=== PATIENT | male | born 1945 | race Caucasian/White ===

== ENCOUNTER 2017-09-17 23:18 | Inpatient (IN) ==
[2017-09-17] MEDS ORDERED: Sodium Chloride 0.9% 1,000 ML PRIMARY IV ONE (23:28)
--- NOTE | 2017-09-17 23:30 | PDOC ---
Fall HPI - General Chief Complaint: Fall Stated Complaint: FALL X 3 TODAY Date Seen by Provider: 09/17/17 Time Seen by Provider: 23:27 Source: POSITIVE: Other (Son and grandson) Exam Limitations: POSITIVE: Clinical condition Nurse's Notes Reviewed & Considered: Yes - History of Present Illness Initial Comments: This is a well-developed, well-nourished, demented, 72-year-old male, who is fallen 3 times today. Patient is DO NOT RESUSCITATE status and was brought in by ambulance after he experienced his third fall today. He is incontinent of urine and has foul-smelling urine. Review of systems is unavailable because the patient's dementia. Son relates that he has had no fever chills or sweats, no cough, no diarrhea or nausea and vomiting. His son further relates that his falls were more weakness and collapse in a controlled, assisted, fashion and did not hit his head. Have you received a tetanus shot in the past 10 years?: Unknown Timing: REPORTS: Intermittent Duration: Unknown Severity: Moderate Context of Fall: REPORTS: Other (Source of his falling is unknown) Location of Fall: REPORTS: Home Associated Symptoms: REPORTS: Memory Impairment, Other (Dementia, patient does not remember falling.) Location of Injuries / Pain: DENIES: Right, Left, Head, Face, Tongue, Lips, Nose , Mouth, Cheeks, Eyes, Ears, Neck, Chest, Abdomen, Upper Back, Mid Back, Lower Back, Radiating to Thigh, Radiating to Leg, Shoulder, Arm, Elbow, Forearm, Wrist , Hand, Hip, Thigh, Knee, Leg, Ankle, Foot, Other - Patient Home Medications Home Medications: Home Medications Clopidogrel Bisulfate [Plavix] 75 mg ORAL QD #90 tab 12/30/11 Levothyroxine Sodium 25 mcg ORAL QD #90 tab 12/30/11 Simvastatin 20 mg ORAL QD #90 tab 12/30/11 - Patient Allergies Allergies/Adverse Reactions: Allergies 3 Allergy/AdvReac Type Severity Reaction Status Date / Time Penicillins Allergy Severe Anaphylaxis Verified 09/18/17 06:55 narcotics AdvReac FLUSHING Uncoded 09/18/17 06:55 Past Medical History - heen HEENT History: Denies History Additional HEENT History: Removed all teeth in November,, dentures at home Cardiovascular History: Hypertension, Hyperlipidemia Respiratory History: Denies History Gastrointestinal History: Denies History Additional Gastrointestinal History: inguinal hernia Genitourinary History: Incontinence Endocrine History: Hypothyroidism Musculoskeletal History: Denies History Prosthesis or Implant: No Neurological History: CVA Blood Disorders: Denies History Psychiatric History: Denies History History of Sexually Transmitted Diseases: No Cancer History: Denies History History of MDRO: No History of Other Communicable Diseases: No Alcohol Use: Heavy In the Past 12 Months, Have Used or Abuse Any Substance: None Previous Surgical History: Yes Type / Date of Surgery: APPENDECTOMY Anesthesia Reactions: No Malignant Hyperthermia: No Significant Family History: No pertinent family hx ROS - Limitations ROS Limitations: Mental Impairment (Dementia and further review of systems unavailable because of his dementia.) Fall Physical Exam - General Appearance General Appearance: POSITIVE: Cooperative, No Acute Distress - HEENT HEENT: POSITIVE: Head Inspection Nml, Eyes Inspection Nml, Ears Inspection Nml, Nose Inspection Nml, Oral/Dental Inspect. Nml, Pharynx Inspect. Nml, PERRL, EOMI - Pupil Size Pupil Size: 4 mm: Bilateral - Neck Neck: POSITIVE: Non Tender, Painless ROM, Trachea Midline, Nexus Criteria Negative - Respiratory / CVS Respiratory / CVS: POSITIVE: Chest Non Tender, No Ecchymosis, Breath Sounds Normal, No Respiratory Distress, Heart Sounds Normal, Regular Rate/Rhythm Peripheral Pulses: Radial (R): 4+ - Abdomen Abdomen: Soft: (All Quadrants), Normal Bowel Sounds: (All Quadrants), Denies Tenderness: (All Quadrants), No Splenomegaly: (All Quadrants), No Hepatomegaly: (All Quadrants), No Guarding: (All Quadrants), No Rebound: (All Quadrants), No Palpable Pulse: (All Quadrants), No Palpabale Mass: (All Quadrants), No Distention: (All Quadrants), No Rigidity: (All Quadrants) - Neuro / Psych Neuro / Psych: 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 Normal As Tested, Motor Normal, Sensation Normal, Disoriented To Place, Disoriented To Time - Skin Skin: POSITIVE: Intact, Warm, Dry - Back Back: POSITIVE: Normal Inspection, No CVA Tenderness, Non Tender, Painless ROM, No Vertebral Tenderness - Extremities Extremity Assessment: Non-Tender: (ALL), Normal ROM: (ALL), No Edema: (ALL), Normal Inspection: (ALL), No Swelling: (ALL), Pelvis Stable: (ALL) Procedures - Laceration/Wound Repair Did patient have a laceration repair: No Fall Progress - Results Reviewed by me Xrays/CTs/US Reviewed by me: Yes Discussed with Radiologist: Yes Lab Results Reviewed by Me: Yes CBC and BMP: 09/17/17 23:00 09/17/17 23:00 Lab Results:: Laboratory Results 3 09/17/17 09/17/17 09/17/17 23:00 23:00 23:00 WBC 3.99 L RBC 5.56 Hgb 16.3 Hct 46.5 MCV 83.6 MCH 29.3 MCHC 35.1 RDW Std Deviation 44.5 RDW Coeff of [place] 14.7 H Plt Count 224 MPV 9.3 Immature Gran % (Auto) 0.3 Neut % (Auto) 64.6 Lymph % (Auto) 20.8 Rogers % (Auto) 10.5 Eos % (Auto) 3.5 Baso % (Auto) 0.3 Immature Gran # (Auto) 0.01 Neut # (Auto) 2.58 Lymph # (Auto) 0.83 Rogers # (Auto) 0.42 Eos # (Auto) 0.14 Baso # (Auto) 0.01 WBC Morphology Comment Normal morphology Plt Morphology Comment Normal morphology RBC Morph Comment Normal morphology Sodium 142 Potassium 3.3 L Chloride 106 Carbon Dioxide 18 L Anion Gap 18 BUN 12 Creatinine 0.7 BUN/Creatinine Ratio 17.14 Glucose 99 Calculated Osmolality 293.0 H Calcium 8.9 Magnesium 1.9 Total Bilirubin 1.2 AST 19 L ALT 14 L Alkaline Phosphatase 90 Troponin I < 0.012 C-Reactive Protein < 0.5 Total Protein 8.0 Albumin 4.3 Globulin 3.7 Albumin/Globulin Ratio 1.10 L Ur Collection Type Urine Color Urine Clarity Urine pH Ur Specific [place] Urine Protein Urine Glucose (UA) Urine Ketones Urine Occult Blood Urine Nitrate Urine Bilirubin Urine Urobilinogen Ur Leukocyte Esterase Urine RBC Urine WBC Ur Squamous Epith Cells Ur Renal Epithelial Cell Urine Crystals Urine Bacteria Urine Casts Urine Mucus Urine Trichomonas Urine Yeast Ur Culture Indicated? 3 09/18/17 00:20 WBC RBC Hgb Hct MCV MCH MCHC RDW Std Deviation RDW Coeff of [place] Plt Count MPV Immature Gran % (Auto) Neut % (Auto) Lymph % (Auto) Rogers % (Auto) Eos % (Auto) Baso % (Auto) Immature Gran # (Auto) Neut # (Auto) Lymph # (Auto) Rogers # (Auto) Eos # (Auto) Baso # (Auto) WBC Morphology Comment Plt Morphology Comment RBC Morph Comment Sodium Potassium Chloride Carbon Dioxide Anion Gap BUN Creatinine BUN/Creatinine Ratio Glucose Calculated Osmolality Calcium Magnesium Total Bilirubin AST ALT Alkaline Phosphatase Troponin I C-Reactive Protein Total Protein Albumin Globulin Albumin/Globulin Ratio Ur Collection Type Voided specimen Urine Color Yellow Urine Clarity Clear Urine pH 5.5 Ur Specific [place] <=1.005 Urine Protein Negative Urine Glucose (UA) Negative Urine Ketones Negative Urine Occult Blood Large H Urine Nitrate Negative Urine Bilirubin Negative Urine Urobilinogen 0.2 Ur Leukocyte Esterase Negative Urine RBC 0-1 Urine WBC None Ur Squamous Epith Cells None Ur Renal Epithelial Cell None Urine Crystals None Urine Bacteria Rare Urine Casts None Urine Mucus None Urine Trichomonas None Urine Yeast None Ur Culture Indicated? Culture not set EKG Interpretation:: POSITIVE: Normal Sinus Rhythm - Patient's Progress Pain Medication Addressed: POSITIVE: Not Applicable Status: POSITIVE: Improved MDM / ED Course: Patient was evaluated, an IV started, blood drawn and sent to the lab for studies, chest x-ray was obtained. Findings: EKG shows a sinus rhythm with no acute ST changes appreciated. CMP shows a potassium of 3.3 a slight elevation of his LFTs. Urinalysis is negative. CBC shows white count 3.99. Assessment: Falls and weakness Plan: Admission. - Consult Consult (If Yes, Name of Consulting MD & Time Called): Yes (dr. montaño) Consulting MD will see pt:: POSITIVE: [facility] [place] Ad[place] Counseled: POSITIVE: Patient, Family, RE: Lab Results, RE: Radiology Results, RE : DX, RE: Need for F/U Patient Care Time - Estimated PCT Patient Care Time (In Minutes): 45 Vital Signs - Recent Vital Signs Vital Signs: Vital Signs (Last 8 hours) Temp Pulse Pulse Pulse Resp BP BP 09/18/17 07:42 98.6 F 64 18 159/90 09/18/17 07:00 74 09/18/17 04:39 96.9 F 68 24 170/108 09/18/17 02:19 80 188/103 09/18/17 01:34 86 16 09/18/17 01:00 96.6 F L 86 16 188/106 Pulse Ox 09/18/17 07:42 94 09/18/17 07:00 09/18/17 04:39 93 09/18/17 02:19 09/18/17 01:34 09/18/17 01:00 95 - VS Reviewed Vital Signs Reviewed: Yes Discharge Clinical Impression: Multiple falls Discharge Disposition: Admit to Inpatient Condition: Stable Date Decision to Admit to Inpatient: 09/18/17 Time Decision to Admit to Inpatient: 00:16
[2017-09-17 23:33] LABS: BASOPHILS # (AUTO) 0.01 10*3/UL; BASOPHILS % (AUTO) 0.3 % (0-1); EOSINOPHILS # (AUTO) 0.14 10*3/UL; EOSINOPHILS % (AUTO) 3.5 % (0-8); Hematocrit [HCT] 46.5 % (42.0-52.0); Hemoglobin [HGB] 16.3 g/dL (14.0-18.0); LYMPHOCYTES # (AUTO) 0.83 10*3/uL; MEAN CORPUSCULAR HEMOGLOBIN 29.3 PG (27-31); MEAN CORPUSCULAR HGB CONC 35.1 g/dL (33-37); MEAN CORPUSCULAR VOLUME 83.6 FL (80-90); MEAN PLATELET VOLUME 9.3 FL (7.4-12.2); MONOCYTES # (AUTO) 0.42 10*3/UL (0.3-0.8); MONOCYTES % (AUTO) 10.5 % (5-15); NEUTROPHILS # (AUTO) 2.58 10*3/UL; NEUTROPHILS % (AUTO) 64.6 % (50-80); PLATELET MORPHOLOGY COMMENT NORMAL MORPHOLOGY (NORM); RBC MORPHOLOGY COMMENT NORMAL MORPHOLOGY (NORM); RED BLOOD COUNT 5.56 10^6/uL (4.70-6.10); WBC MORPHOLOGY COMMENT NORMAL MORPHOLOGY (NORM)
[2017-09-17 23:42] LABS: BLOOD UREA NITROGEN 12 mg/dL (7-22); BUN/CREATININE RATIO 17.14 (6-20); SERUM ALBUMIN 4.3 g/dL (3.5-4.8)
--- NOTE | 2017-09-17 23:42 | EKG ---
[address] [address] Measurements Intervals [place] Rate: 82 P: -49 AK: 178 QRS: 48 QRSD: 96 T: 68 QT: 392 QTc: 430 Interpretive Statements SINUS RHYTHM MINIMAL ST DEPRESSION [0.025+ mV ST DEPRESSION] Compared to ECG 12/29/2015 09:32:34 ST (T wave) deviation now present Sinus bradycardia no longer present Sinus arrhythmia no longer present Electronically Signed On 09-18-17 09:18:00 MDT by Ken Mckee MD [email or web address]
[2017-09-18 00:26] LABS: BILIRUBIN,URINE NEGATIVE (NEG); CLARITY,URINE CLEAR (CLEAR); COLOR,URINE YELLOW (Y); GLUCOSE, URINE (UA) NEGATIVE (NEG); OCCULT BLOOD,URINE LARGE (NEG); PH,URINE 5.5 (5.0-8.5); PROTEIN,URINE NEGATIVE (NEG); UROBILINOGEN,URINE 0.2 EU/dL (0.2)
[2017-09-18 00:33] LABS: BACTERIA,URINE RARE; RBC,URINE 0-1 /hpf; URINE SAMPLE TYPE VOIDED SPECIMEN
[2017-09-18] MEDS ORDERED: DOCUSATE 100 MG CAPSULE PO PRN (00:48)
[2017-09-18] MEDS ORDERED: ONDANSETRON 4 MG/2 ML VIAL IVP PRN (00:48)
[2017-09-18] MEDS ORDERED: ACETAMINOPHEN 325 MG TABLET PO PRN (00:48)
[2017-09-18] MEDS ORDERED: LIDOCAINE W/ SODIUM BICARB 0.5 ML SYR SUBD PRN (00:48)
[2017-09-18] MEDS ORDERED: CALCIUM CARBONATE 500 MG (TUMS) CHEWABLE TABLET PO PRN (00:48)
[2017-09-18] MEDS: METOPROLOL TARTRATE 5 MG/5 ML VIAL IVP PRN ×2 (02:19→18:02)
[2017-09-18] MEDS: D5-1/2NS + 20mEq KCL 1,000 ML PRIMARY IV SCH ×3 (02:22→20:50)
--- NOTE | 2017-09-18 02:23 | DI ---
EXAM: XR Chest, 1 View CLINICAL HISTORY: falls Physician Notes: Tech Comments: TECHNIQUE: Frontal view of the chest. COMPARISON: 01/17/2013. FINDINGS: Lungs: No focal airspace disease. Diminished lung volumes. The pulmonary vasculature is within normal limits. Pleural space: Unremarkable. No pneumothorax. Heart: Cardiac silhouette is partially obscured. No evidence of enlargement. Mediastinum: The trachea is midline. Bones/joints: Unremarkable. Vasculature: Atherosclerotic calcification with mild unfolding of the thoracic aorta. IMPRESSION: Diminished lung volumes without evidence for acute traumatic injury or focal airspace disease.
--- NOTE | 2017-09-18 02:47 | DI ---
EXAM: CT Head Without Intravenous Contrast CLINICAL HISTORY: ITS.REASON falls, plavix and AMS Physician Notes: Tech Comments: TECHNIQUE: Axial computed tomography images of the head/brain without intravenous contrast. COMPARISON: 12/29/2015 FINDINGS: Brain: Diffuse cerebral atrophy noted. Periventricular and subcortical deep white matter hypodense changes noted. Hypodense area involving the left basal ganglia extending to the lateral aspect of the left frontal horn. No hemorrhage. Ventricles: Unremarkable. No ventriculomegaly. Bones/joints: Unremarkable. No acute fracture. Soft tissues: Unremarkable. Sinuses: Unremarkable as visualized. No acute sinusitis. Mastoid air cells: Unremarkable as visualized. No mastoid effusion. IMPRESSION: No acute intracranial process with underlying cerebral atrophy and deep white matter presumed microvascular changes, similar to 12/29/2015. Stable chronic lacunar infarct involving the left basal ganglia.
[2017-09-18] MEDS: LEVOTHYROXINE 25 MCG TABLET PO SCH (04:49)
[2017-09-18] MEDS: ENOXAPARIN SODIUM 40 MG/0.4 ML SYRINGE SUBCUT SCH (08:56)
[2017-09-18] MEDS: Simvastatin Tab 20 MG TAB PO SCH (08:56)
[2017-09-18] MEDS: CLOPIDOGREL 75 MG TABLET PO SCH (08:56)
[2017-09-18] MEDS: TAMSULOSIN 0.4 MG CAPSULE PO SCH (16:56)
--- NOTE | 2017-09-18 18:00 | PDOC ---
HPI - History of Present Illness History of Present Illness: Is a very nice 72-year-old gentleman with a history of severe dementia comes in to the ER with multiple falls and increased dementia was found to have the low potassium levels and dehydration was admitted for electrolyte replacement denies any pain history unable to obtain secondary to dementia history obtained from old notes Past Medical History Medical History: 1. Multiple strokes. 2. 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 3. Hypothyroidism. 4. Hyperlipidemia Surgical History: 1. Had all his teeth pulled out 5-6 weeks ago Family History: Reviewed an Not Pertinent Tobacco Use: Former Smoker Do you dip or chew tobacco: No In the Past 12 Months, Have Used or Abuse Any of the Following Substance: None Medication / Allergies Home Medications: Home Medications 3 Medication Instructions Recorded Confirmed Type Clopidogrel Bisulfate [Plavix] 75 mg ORAL QD #90 tab 12/30/11 09/18/17 History Levothyroxine Sodium 25 mcg ORAL QD #90 tab 12/30/11 09/18/17 History Simvastatin 20 mg ORAL QD #90 tab 12/30/11 09/18/17 History Allergies/Adverse Reactions: Allergies 3 Allergy/AdvReac Type Severity Reaction Status Date / Time Penicillins Allergy Severe Anaphylaxis Verified 09/18/17 06:55 narcotics AdvReac FLUSHING Uncoded 09/18/17 06:55 Review of Systems - Review of Systems ROS Unobtainable: Due to Mental Status Exam - Vitals Vital Signs: Vital Signs Temperature 98.2 F Temperature Source Oral Pulse Rate [Apical] 74 Pulse Rate [Pulse Oximeter] 66 Pulse Rate 80 Respiratory Rate 20 Blood Pressure [Left Arm] 187/85 Blood Pressure 188/103 Pulse Ox 95 Oxygen Delivery Method Room Air Height 5 ft 4 in Weight 146 lb 12.8 oz - General General Appearance: No Acute Distress, Cooperative - Eye Eye Exam: POSITIVE: Normal Appearance, PERRL, EOMI, No Scleral Icterus - Neck Neck Exam: Normal Inspection, Full ROM, No Tenderness, No Lymphadenopathy, No Thyromegaly, JVP is not Raised - Respiratory Respiratory Exam: POSITIVE: Clear to Auscultation - Bilaterally, Breathing Non Labored, Normal To Percussion, Normal to Percussion and Palpation - Cardiovascular Cardiovascular Exam: POSITIVE: RRR, No Murmur, No Clicks, No Gallops, No Rubs, PMI Non-Displaced - GI/Abdominal GI/Abdominal Exam: POSITIVE: Normal Bowel Sounds, Non Tender, Non Distended, Soft, No Masses, No Hepatomegaly, No Splenomegaly, No Organomegaly - Extremities Extremities Exam: POSITIVE: No Clubbing Present, No Edema Present Results - Labs CBC and BMP: 09/17/17 23:00 09/17/17 23:00 Assessment and Plan - Patient Problems (1) Multiple falls Current Visit: Yes Status: Acute Code(s): R29.6 - Repeated falls (2) Alcoholic intoxication Current Visit: No Status: Acute (3) Multi-infarct dementia Current Visit: No Status: Acute Code(s): F01.50 - Vascular dementia without behavioral disturbance - Assessment / Plan Additional Assessment/Plan Details: #1 hypokalemia replace #2 dehydration replace IV fluids #3 multi-infarct dementia worse had discussion with the family members unable take care of patient social worker health services on consult for placement all in agreement also discussed with son earlier this morning
[2017-09-19] MEDS: LEVOTHYROXINE 25 MCG TABLET PO SCH (04:30)
[2017-09-19] MEDS: D5-1/2NS + 20mEq KCL 1,000 ML PRIMARY IV SCH (04:31)
[2017-09-19 04:56] LABS: BASOPHILS # (AUTO) 0.01 10*3/UL; BASOPHILS % (AUTO) 0.2 % (0-1); EOSINOPHILS # (AUTO) 0.15 10*3/UL; Hematocrit [HCT] 40.8 % (42.0-52.0); Hemoglobin [HGB] 13.9 g/dL (14.0-18.0); LYMPHOCYTES # (AUTO) 1.01 10*3/uL; MEAN CORPUSCULAR HGB CONC 34.1 g/dL (33-37); MEAN CORPUSCULAR VOLUME 85.2 FL (80-90); MEAN PLATELET VOLUME 9.3 FL (7.4-12.2); MONOCYTES # (AUTO) 0.44 10*3/UL (0.3-0.8); MONOCYTES % (AUTO) 8.9 % (5-15); NEUTROPHILS # (AUTO) 3.29 10*3/UL; RED BLOOD COUNT 4.79 10^6/uL (4.70-6.10)
[2017-09-19 05:01] LABS: PLATELET MORPHOLOGY COMMENT NORMAL MORPHOLOGY (NORM); RBC MORPHOLOGY COMMENT NORMAL MORPHOLOGY (NORM); WBC MORPHOLOGY COMMENT NORMAL MORPHOLOGY (NORM)
[2017-09-19 05:05] LABS: BLOOD UREA NITROGEN 8 mg/dL (7-22); BUN/CREATININE RATIO 13.33 (6-20)
[2017-09-19] MEDS: TAMSULOSIN 0.4 MG CAPSULE PO SCH (08:13)
[2017-09-19] MEDS: ENOXAPARIN SODIUM 40 MG/0.4 ML SYRINGE SUBCUT SCH (08:13)
[2017-09-19] MEDS: CLOPIDOGREL 75 MG TABLET PO SCH (08:14)
[2017-09-19] MEDS: Simvastatin Tab 20 MG TAB PO SCH (08:14)
[2017-09-19] MEDS: METOPROLOL TARTRATE 5 MG/5 ML VIAL IVP PRN (10:07)
--- NOTE | 2017-09-19 10:42 | PDOC(PROG) ---
Interval History: Patient has no complaints again poor historian secondary to dementia but is very is smiley and in good spirits follows commands is at the bedside Objective : Data - Labs CBC and BMP: 09/19/17 04:35 09/19/17 04:35 Objective : Exam - Respiratory Respiratory Exam: Clear to Auscultation - Bilaterally, Breathing Non Labored, Normal To Percussion, Normal to Percussion and Palpation - Cardiovascular Cardiovascular Exam: RRR, No Murmur, No Clicks, No Gallops, No Rubs, PMI Non- Displaced - GI/Abdominal GI/Abdominal Exam: Normal Bowel Sounds, Non Tender, Non Distended, Soft, No Masses, No Hepatomegaly, No Splenomegaly, No Organomegaly Assessment and Plan - Patient Problems (1) Hypokalemia Current Visit: Yes Status: Acute Comment: Placed now normal stop IV fluids Code(s): E87.6 - Hypokalemia (2) Multiple falls Current Visit: Yes Status: Acute Comment: Poor balance severe dementia awaiting placement to the [facility] or other facility Code(s): R29.6 - Repeated falls (3) Alcoholic intoxication Current Visit: No Status: Acute Comment: Stable unaware on palpation is getting alcohol home (4) Multi-infarct dementia Current Visit: No Status: Acute Comment: Severe getting worse family members unable to care for patient Code(s): F01.50 - Vascular dementia without behavioral disturbance (5) Hypertension Current Visit: Yes Status: Acute Comment: Continue home meds Code(s): I10 - Essential (primary) hypertension
[2017-09-19] MEDS ORDERED: LIDOCAINE HCL 2 % 10 ML JELLY URO-JECT TOPICAL PRN (19:02)
[2017-09-20] MEDS: LEVOTHYROXINE 25 MCG TABLET PO SCH (04:36)
[2017-09-20] MEDS: ENOXAPARIN SODIUM 40 MG/0.4 ML SYRINGE SUBCUT SCH (09:19)
[2017-09-20] MEDS: Beta Carot W/Vit E,C,Min Tab 1 TAB TAB PO SCH (09:19)
[2017-09-20] MEDS: LISINOPRIL 20 MG TABLET PO SCH (09:20)
[2017-09-20] MEDS: CLOPIDOGREL 75 MG TABLET PO SCH (09:20)
[2017-09-20] MEDS: Simvastatin Tab 20 MG TAB PO SCH (09:20)
[2017-09-20] MEDS: TAMSULOSIN 0.4 MG CAPSULE PO SCH (09:20)
--- NOTE | 2017-09-20 11:16 | PDOC(PROG) ---
Interval History: No complaints no change clinically dementia stable had some urinary retention opted for Dent The multiple times with straight catheter Objective : Data - Labs CBC and BMP: 09/19/17 04:35 09/19/17 04:35 Objective : Exam - Respiratory Respiratory Exam: Clear to Auscultation - Bilaterally, Breathing Non Labored, Normal To Percussion, Normal to Percussion and Palpation - Cardiovascular Cardiovascular Exam: RRR, No Murmur, No Clicks, No Gallops, No Rubs, PMI Non- Displaced - GI/Abdominal GI/Abdominal Exam: Normal Bowel Sounds, Non Tender, Non Distended, Soft, No Masses, No Hepatomegaly, No Splenomegaly, No Organomegaly Assessment and Plan - Patient Problems (1) Hypokalemia Current Visit: Yes Status: Resolved Comment: Resolved Code(s): E87.6 - Hypokalemia (2) Multiple falls Current Visit: Yes Status: Acute Comment: PT OT slight from advanced severe dementia Code(s): R29.6 - Repeated falls (3) Alcoholic intoxication Current Visit: No Status: Acute Comment: Patient does drink some at home no Dts (4) Multi-infarct dementia Current Visit: No Status: Acute Code(s): F01.50 - Vascular dementia without behavioral disturbance (5) Hypertension Current Visit: Yes Status: Acute Code(s): I10 - Essential (primary) hypertension
[2017-09-21] MEDS: LEVOTHYROXINE 25 MCG TABLET PO SCH (04:40)
[2017-09-21] MEDS: TAMSULOSIN 0.4 MG CAPSULE PO SCH (09:28)
[2017-09-21] MEDS: ENOXAPARIN SODIUM 40 MG/0.4 ML SYRINGE SUBCUT SCH (09:28)
[2017-09-21] MEDS: LISINOPRIL 20 MG TABLET PO SCH (09:29)
[2017-09-21] MEDS: CLOPIDOGREL 75 MG TABLET PO SCH (09:29)
[2017-09-21] MEDS: Simvastatin Tab 20 MG TAB PO SCH (09:29)
[2017-09-21] MEDS: Beta Carot W/Vit E,C,Min Tab 1 TAB TAB PO SCH (09:29)
--- NOTE | 2017-09-21 10:36 | PDOC(PROG) ---
Interval History: Uneventful night no complaints patient stable back to his normal self awaiting placement by social service Objective : Data - Labs CBC and BMP: 09/19/17 04:35 09/19/17 04:35 Objective : Exam - Respiratory Respiratory Exam: Clear to Auscultation - Bilaterally, Breathing Non Labored, Normal To Percussion, Normal to Percussion and Palpation - Cardiovascular Cardiovascular Exam: RRR, No Murmur, No Clicks, No Gallops, No Rubs, PMI Non- Displaced - GI/Abdominal GI/Abdominal Exam: Normal Bowel Sounds, Non Tender, Non Distended, Soft, No Masses, No Hepatomegaly, No Splenomegaly, No Organomegaly Assessment and Plan - Patient Problems (1) Hypokalemia Current Visit: Yes Status: Resolved Comment: This is been replaced Code(s): E87.6 - Hypokalemia (2) Multiple falls Current Visit: Yes Status: Acute Comment: PT OT this is his baseline with this and severe dementia which is getting worse multifocal infarct Code(s): R29.6 - Repeated falls (3) Alcoholic intoxication Current Visit: No Status: Acute Comment: Patient does drink at home no delirium tremens (4) Multi-infarct dementia Current Visit: No Status: Acute Code(s): F01.50 - Vascular dementia without behavioral disturbance (5) Hypertension Current Visit: Yes Status: Acute Comment: Stable Code(s): I10 - Essential (primary) hypertension (6) Urinary retention Current Visit: Yes Status: Acute Comment: Diet on Flomax catheter inserted likely will need urology consult Code(s): R33.9 - Retention of urine, unspecified
--- NOTE | 2017-09-21 16:39 | PTI REPORT ---
Thank you for the referral of Solitario Cook. He was seen on 09/21/17 for an inpatient evaluation secondary to generalized weakness. SUBJECTIVE: The patient is a 72-year-old male who was seen this morning secondary to multiple falls at home, impulsiveness, and Alzheimer's. The patient was willing to participate in some activity. PAST MEDICAL HISTORY: Past medical history can be found in the patient's medical record. OBJECTIVE FINDINGS: Range of motion: The patient demonstrates good range of motion of his lower extremities. The patient has functional range of motion of his upper extremities to 125 degrees of flexion and abduction. Strength: The patient demonstrates good strength of his lower extremities. The patient appears to have good strength of the upper extremities. Bed mobility: The patient is able to come from supine to sit independently. Transfers: The patient is able to transfer from sit to stand independently but does not possess good judgement or safety skills when doing so. Ambulation: Ambulation is also a problem by himself. With assist of one he ambulates well and does follow simple verbal commands quite well. We attempted to use a walker, but due to his cognitive status it did not work out so well. ASSESSMENT: The patient is very impulsive and you need to keep an eye on him at all times. Short-Term Goals: To be met by discharge from inpatient: Patient will maintain ability to perform all bed mobility and transfers independently and safely. Patient will be able to ambulate 300 feet with least restrictive assistive device independently and safely. Patient will have balance of good or greater. Long-Term Goals: To be met following discharge from inpatient: Patient will be discharged to 24-hour care facility. TREATMENT PLAN: Patient will be seen B.I.D during the week and one time per day over the weekend as an inpatient for transfer training, ambulation, and general mobility. INITIAL TREATMENT: Treatment today consisted of the initial evaluation followed by some balance training with assist of one. He did some walking and ambulation. We worked on ascending and descending stairs. He did tolerate at least 15 minutes of constant activity in a submaximal way. Cognition and safety issues are our primary concern. He needs continued 24-hour supervision. The therapist believes they are working on a placement in an Alzheimer's unit in the local community. JOAQUIN
[2017-09-22 05:27] LABS: BASOPHILS # (AUTO) 0.01 10*3/UL; BASOPHILS % (AUTO) 0.2 % (0-1); EOSINOPHILS # (AUTO) 0.09 10*3/UL; EOSINOPHILS % (AUTO) 1.6 % (0-8); Hematocrit [HCT] 38.4 % (42.0-52.0); Hemoglobin [HGB] 13.2 g/dL (14.0-18.0); LYMPHOCYTES # (AUTO) 0.71 10*3/uL; MEAN CORPUSCULAR HEMOGLOBIN 29.3 PG (27-31); MEAN CORPUSCULAR HGB CONC 34.4 g/dL (33-37); MEAN CORPUSCULAR VOLUME 85.3 FL (80-90); MEAN PLATELET VOLUME 9.5 FL (7.4-12.2); MONOCYTES # (AUTO) 0.56 10*3/UL (0.3-0.8); MONOCYTES % (AUTO) 9.8 % (5-15); NEUTROPHILS # (AUTO) 4.34 10*3/UL; NEUTROPHILS % (AUTO) 75.8 % (50-80)
[2017-09-22 05:36] LABS: PLATELET MORPHOLOGY COMMENT NORMAL MORPHOLOGY (NORM); RBC MORPHOLOGY COMMENT NORMAL MORPHOLOGY (NORM); WBC MORPHOLOGY COMMENT NORMAL MORPHOLOGY (NORM)
[2017-09-22 06:52] LABS: BLOOD UREA NITROGEN 11 mg/dL (7-22); BUN/CREATININE RATIO 18.33 (6-20); SERUM ALBUMIN 2.9 g/dL (3.5-4.8)
[2017-09-22] MEDS: ENOXAPARIN SODIUM 40 MG/0.4 ML SYRINGE SUBCUT SCH (08:03)
[2017-09-22] MEDS: Simvastatin Tab 20 MG TAB PO SCH (08:04)
[2017-09-22] MEDS: CLOPIDOGREL 75 MG TABLET PO SCH (08:04)
[2017-09-22] MEDS: Beta Carot W/Vit E,C,Min Tab 1 TAB TAB PO SCH (08:04)
[2017-09-22] MEDS: LEVOTHYROXINE 25 MCG TABLET PO SCH (08:04)
[2017-09-22] MEDS: LISINOPRIL 20 MG TABLET PO SCH (08:04)
[2017-09-22] MEDS: TAMSULOSIN 0.4 MG CAPSULE PO SCH (08:04)
--- NOTE | 2017-09-22 09:38 | OTI REPORT ---
Thank you for the referral of Solitario Cook. He was seen on 09/21/17 for an occupational therapy inpatient evaluation secondary to weakness. SUBJECTIVE: The patient is a 72-year-old male with a significant history of dementia who was currently residing in [place] with his who is the primary caregiver before being admitted to the hospital secondary to weakness. The patient was unable to provide a history of prior level of functioning secondary to dementia. Per nursing's report, the patient's is potentially looking into placing the patient into a shelter facility secondary to his dementia and most recently an increase in care required at home. PAST MEDICAL HISTORY: Past medical history can be found in the patient's medical record. OBJECTIVE FINDINGS: General observations: The patient was alert but very impulsive. He was not oriented at all. He was able to follow one step commands. He was unable to answer questions. Pain: The patient does complain of some pain in his left heel. Transfers: The patient demonstrated the ability to complete sit to stand transfers independently. Ambulation: The patient was able to ambulate approximately 500 feet before requiring a rest break with zero losses of balance. The patient does not ambulate with the use of an assistive device. Range of motion: The patient demonstrated upper extremity range of motion that is within functional limits bilaterally. Strength: The patient demonstrates upper extremity strength of 4+/5 bilaterally for shoulder flexion and abduction and 5/5 for elbow flexion/extension, wrist flexion/extension, and gross grasp strength. Activities of daily living: The patient demonstrated the ability to don and doff socks with leg crossing technique while seated in a chair with verbal cues. The patient demonstrated the ability to stand at the sink x3 minutes and complete a hand washing task with verbal cues. ASSESSMENT: Rehab potential is fair to poor secondary to dementia and ability to follow verbal commands. The patient was very impulsive, demonstrated very poor safety awareness, and was unaware of surroundings during functional ambulation tasks. Problem List: Decreased activity tolerance Decreased ability to perform ADLs Short-Term Goals: To be met by discharge from inpatient: Patient will be able to complete upper and lower extremity dressing tasks with verbal cues only. Patient will be able to complete all functional transfers including toilet/ shower/chair transfers with stand by assistance only with no losses of balance. Patient will be able to complete standing grooming tasks and tolerate standing x10 minutes at the sink with zero losses of balance with verbal cues only. Long-Term Goals: To be met following discharge from inpatient: Patient will potentially be moved to a shelter setting where assistance may be provided due to lower cognitive functioning. TREATMENT PLAN: Patient will be seen B.I.D during the week and one time per day over the weekend as an inpatient to address the above goals and objectives. INITIAL TREATMENT: Treatment today consisted of the initial evaluation followed by functional ambulation tasks, functional transfers, and lower extremity dressing. The patient also completed therapeutic exercise to include shoulder flexion, horizontal adduction, shoulder shrugs, and shoulder abduction. The patient was assisted to his recliner chair with alarm set and nursing staff notified. JOAQUIN
[2017-09-22] MEDS: QUEtiapine Tab 25 MG TAB PO SCH (09:47)
--- NOTE | 2017-09-22 11:26 | PDOC(PROG) ---
Interval History: No change clinically we will DC the Dent since the Flomax seems to be started no work and the patient really wants the Dent out. No other complaints poor historian secondary to severe dementia Objective : Data - Labs CBC and BMP: 09/22/17 04:36 09/22/17 04:36 Objective : Exam - Respiratory Respiratory Exam: Clear to Auscultation - Bilaterally, Breathing Non Labored, Normal To Percussion, Normal to Percussion and Palpation - Cardiovascular Cardiovascular Exam: RRR, No Murmur, No Clicks, No Gallops, No Rubs, PMI Non- Displaced - GI/Abdominal GI/Abdominal Exam: Normal Bowel Sounds, Non Tender, Non Distended, Soft, No Masses, No Hepatomegaly, No Splenomegaly, No Organomegaly Assessment and Plan - Patient Problems (1) Hypokalemia Current Visit: Yes Status: Resolved Comment: Replaced continue by mouth if patient takes it if not I would have to start an IV with some potassium fluids he has not token Jeff Saenz since he was agitated this morning he refuses pills Code(s): E87.6 - Hypokalemia (2) Multiple falls Current Visit: Yes Status: Acute Code(s): R29.6 - Repeated falls (3) Alcoholic intoxication Current Visit: No Status: Acute (4) Multi-infarct dementia Current Visit: No Status: Acute Code(s): F01.50 - Vascular dementia without behavioral disturbance (5) Hypertension Current Visit: Yes Status: Acute Code(s): I10 - Essential (primary) hypertension (6) Urinary retention Current Visit: Yes Status: Acute Comment: Take Dent out Flomax started Code(s): R33.9 - Retention of urine, unspecified
--- NOTE | 2017-09-22 11:32 | PT.PROG ---
Progress Note Progress Note: S. Patient agreed to go to the therapy gym. O. Patient was wheeled to the therapy gym where he used the nu-step x 10 minutes , then performed seated marches, long arc quads (with 30 second hold x3) ball squeezes, resisted knee flexion, sit to stands all x 10 bilaterally, balance on uneven surface 3x30 seconds. Patient ambulated 50 feet then was wheeled back to his room where he was left with alarm and call light. A. Patient tolerated therapy well, he continues to have balance deficits and weakness. Patient requires frequent verbal cues to stay on task and complete all exercises. P. Continue POC.
--- NOTE | 2017-09-22 15:58 | OT.PROG ---
Progress Note Progress Note: S: Pt stated multiple times that he required the use of the bathroom to urinate even though patient had catheter attached. O: Pt participated in OT-session to address functional and dynamic standing balance, UE strengthening, sit to stand transfers, and functional mobility. Pt completed [id number] transfers x 2 w/ min v/c for safety. Pt completed functional AMB x 351ft around nursing station from hospital room and down to therapy gym. Pt completed biceps curls w/ cane w/ 2lbs weight and w/ 2lbs free weights. Pt completed row exercises w/ 2lbs free weights. Pt completed dynamic reaching activity w/ ball to work on standing balance. A: Pt's cognitive declines make it difficult for him to understand that his urination urges are not immediate concerns due to placement of urinary catheter bag. Due to these urinary urges pt is impulsive in standing and walking believing he has to use the restroom w/ no regards to safety in balance and transfers. Pt tolerated increased exercise today. P: Cont. skilled OT to address UE strengthening and dynamic standing balance.
[2017-09-22] MEDS: POTASSIUM CHLORIDE 20 MEQ TAB PO SCH ×3 (16:43→23:27)
--- NOTE | 2017-09-22 16:53 | OT.PROG ---
Progress Note Progress Note: S: Pt continually stated he needed to use the restroom unaware that he was on a catheter. O: Pt completed OT-session to address UE strengthening and reaching strength. Pt completed theraband exercises to improve AROM and strength in shoulder flexion, abduction, biceps flexion, and IROT/EROT of shoulder. Pt required at least 5 v/c throughout session to reorient to activity. A: Pt activity tolerance diminished due to urge of urination making it difficult to complete full reps with theraband. P: Cont. skilled OT to address deficits in arm strength and overall activity tolerance.
--- NOTE | 2017-09-22 17:11 | PT.PROG ---
Progress Note Progress Note: S. Patient stated agreed to do exercise in his room this afternoon. O. Patient performed seated exercises in the form of; long arc quads, heel toe raises, marches (seated and standing), pillow squeezes, clam shells, resisted knee flexion all x 10 bilaterally with red thera bands. Patient performed sit to stands x 5. Patient was left in bed with alarm and call light. A. Patient tolerated exercise fair, he continues to require frequent verbal cues to stay on task and complete all exercises. Patient would benefit from 24 hour care. P. Continue POC until DC.
[2017-09-23] MEDS: LEVOTHYROXINE 25 MCG TABLET PO SCH ×2 (04:52→06:11)
[2017-09-23 05:06] VITALS: TEMP 97.2
[2017-09-23 05:22] LABS: BLOOD UREA NITROGEN 10 mg/dL (7-22); BUN/CREATININE RATIO 16.66 (6-20); SERUM ALBUMIN 2.7 g/dL (3.5-4.8)
--- NOTE | 2017-09-23 07:39 | DCSUMMARY ---
Hospitalization Summary Admit Date: 09/18/2017 Discharge Date: 09/23/17 Hospital Course: Discharge diagnoses 1. Dementia likely secondary to multi-infarct dementia 2. History of multiple strokes 3. Hypothyroidism 4. Hypertension 5. Hyperlipidemia 6. BPH 7. Hypokalemia resolved Hospital course This is a 72 years old male with medical history significant for history of dementia likely secondary to multi-infarcts, hypothyroidism and hyperlipidemia who was brought to the hospital because of multiple fall, evaluation revealed dehydration and hypokalemia and he was admitted for that. Please see Dr. Francois note. Patient was given IV fluids and potassium was corrected. Blood pressure was elevated and he was put on blood pressure medication. Apparently after discussion with the family because of his worsening dementia it was decided that he needs admission to the halfway. He was evaluated by [facility] in [place] and was accepted. He did have apparently some behavioral changes including agitation and with the dementia he was put on Seroquel. He did have issues with urination and was put on Flomax. Urine culture was deemed to be contaminant. I saw the patient on the day of discharge he was denying symptoms. However he has dementia. His exam apart from his dementia was much remarkable. He did not appear in distress. Dr. Francois already spoke with the accepting physician and the patient will be transferred at one point today. 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 [employer] BUN/Creatinine Ratio 16.66 (6-20) Glucose 83 (78-110) mg/dL Calculated Osmolality 287.0 (267-292) mOsm/kg Calcium 8.1 L (8.7-10.7) mg/dL Total Bilirubin 1.3 H (0.3-1.2) mg/dL AST 14 L (21-57) IU/L ALT 16 L (21-72) IU/L Alkaline Phosphatase 51 (38-126) IU/L Total Protein 5.6 L (6.1-8.0) g/dL Albumin 2.7 L (3.5-4.8) g/dL Globulin 2.9 (2.50-4.10) g/dL Albumin/Globulin Ratio 0.90 L (1.3-2.0) mg/g Discharge instruction Diet regular, mechanically soft Activity as tolerated Medications Active Medications Clopidogrel Bisulfate (Plavix) 75 mg PO DAILY@0900 [facility] Last Admin: 09/22/17 08:04 Dose: 75 mg Docusate Sodium (Colace) 100 mg PO BID PRN PRN Reason: Constipation Last Admin: 09/19/17 18:56 Dose: 100 mg Levothyroxine Sodium (Synthroid) 25 mcg PO DAILY@0530 [facility] Last Admin: 09/23/17 06:11 Dose: Not Given Lisinopril (Prinivil) 20 mg PO DAILY [facility] Last Admin: 09/22/17 08:04 Dose: 20 mg Multivitamins/Minerals (Ocuvite Tab) 1 tab PO DAILY [facility] Potassium Chloride (Klor-Con) 10 meq PO daily [facility] for 5 days Last Admin: 09/22/17 23:27 Dose: Not Given Quetiapine Fumarate (Seroquel Tab) 25 mg PO DAILY [facility] Last Admin: 09/22/17 09:47 Dose: 25 mg Simvastatin (Zocor) 20 mg PO DAILY [facility] Last Admin: 09/22/17 08:04 Dose: 20 mg Tamsulosin HCl (Flomax) 0.4 mg PO DAILY [facility] Last Admin: 09/22/17 08:04 Dose: 0.4 mg Condition at discharge was stable for discharge Follow-up with his PCP in the halfway. Exam - Vitals Vital Signs: Vital Signs Temperature 97.2 F Temperature Source Temporal Artery Scan Pulse Rate [Apical] 80 Pulse Rate [Pulse Oximeter] 65 Pulse Rate 70 Respiratory Rate 21 Blood Pressure [Left Arm] 138/61 Blood Pressure 190/95 Pulse Ox 91 Oxygen Delivery Method Room Air Height 5 ft 4 in Weight 151 lb 15.998 oz - General General Appearance: No Acute Distress - Head Head Exam: Normal Inspection - Eye Eye Exam: POSITIVE: Normal Appearance - ENT ENT Exam: POSITIVE: Normal Exam - Neck Neck Exam: Normal Inspection - Respiratory Respiratory Exam: POSITIVE: Clear to Auscultation - Bilaterally - Cardiovascular Cardiovascular Exam: POSITIVE: RRR - GI/Abdominal GI/Abdominal Exam: POSITIVE: Normal Bowel Sounds, Non Tender, Non Distended, Soft, No Organomegaly - Rectal Rectal Exam: POSITIVE: Deferred - External Exam: POSITIVE: Deferred - Extremities Extremities Exam: POSITIVE: Normal Inspection - Back Back Exam: POSITIVE: Normal Inspection - Neurological Neurological Exam: POSITIVE: Alert, CN II-XII Intact, No Facial Droop, Speech Intact / Clear - Psychiatric Psychiatric Exam: POSITIVE: Flat Affect
[2017-09-23 07:43] VITALS: BP 153/63; RESP 20; O2SAT 93
[2017-09-23] MEDS: LISINOPRIL 20 MG TABLET PO SCH (09:17)
[2017-09-23] MEDS: QUEtiapine Tab 25 MG TAB PO SCH (09:17)
[2017-09-23] MEDS: TAMSULOSIN 0.4 MG CAPSULE PO SCH (09:17)
[2017-09-23] MEDS: Beta Carot W/Vit E,C,Min Tab 1 TAB TAB PO SCH (09:17)
[2017-09-23] MEDS: Simvastatin Tab 20 MG TAB PO SCH (09:17)
[2017-09-23] MEDS: ENOXAPARIN SODIUM 40 MG/0.4 ML SYRINGE SUBCUT SCH (09:18)
[2017-09-23] MEDS: POTASSIUM CHLORIDE 20 MEQ TAB PO SCH (09:18)
[2017-09-23] MEDS: CLOPIDOGREL 75 MG TABLET PO SCH (09:18)
== END 2017-09-23 09:47 | DRG 884 ==
LOC: ER 23:18 → MED/SURG 09-18 01:28
PROVIDERS: ADMIT Family Medicine; ATTEND Family Medicine